=== PATIENT | female | born 1975 | race Caucasian/White ===

== ENCOUNTER 2020-12-02 18:16 | Emergency (ER) | payer SELFPAY ==
[~2020-12-02] VITALS: Ht 170.2 cm; Wt 115.7 kg
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
[2020-12-02] MEDS ORDERED: ACETAMINOPHEN 325 MG TABLET PO ONE (19:30)
[2020-12-02] MEDS ORDERED: ACETAMINOPHEN ES 500 MG TABLET ONE (19:56)
[2020-12-02] MEDS ORDERED: IBUP-1955 PO (20:08)
[2020-12-02] MEDS ORDERED: CYCL5TAB PO (20:08)
--- NOTE | 2020-12-02 20:16 | NUR ---
Patient discharged to home in stable condition. Written and verbal after care instructions given. Patient verbalizes understanding of instruction. ambulatory with a steady gait noted. pt aaox4 no acute distress noted resp even and unlabored.
[2020-12-02 20:17] VITALS: BP 146/76
== END 2020-12-02 20:18 | disposition home or self-care (01) ==
LOC: ER 18:25
DX: M54.5 Low back pain (principal); R20.0 Anesthesia of skin; R51.9 Headache, unspecified; J45.909 Unspecified asthma, uncomplicated; Z98.890 Other specified postprocedural states; Z79.899 Other long term (current) drug therapy; V49.49XA Driver injured in collision with other motor vehicles in traffic accident, initial encounter; Y93.89 Activity, other specified; Y92.413 State road as the place of occurrence of the external cause; Y99.8 Other external cause status
CPT/HCPCS: 72100-TC

== ENCOUNTER 2025-04-05 13:42 | Emergency (ER) | payer OTHER ==
[~2025-04-05] VITALS: Ht 170.2 cm; Wt 99.3 kg
[~2025-04-05 13:42] MED LIST: CYCL5TAB PO; IBUP-1955 PO
[2025-04-05 13:56] VITALS: TEMP 97.3
[2025-04-05] MEDS ORDERED: ONDANSETRON HCL/PF 4 MG/2 ML VIAL ONE (14:20)
[2025-04-05] MEDS: IV NS 0.9% 1,000 ML BAG IV ONE (14:21)
[2025-04-05] MEDS: ONDANSETRON HCL/PF 4 MG/2 ML VIAL IVP ONE (14:28)
[2025-04-05 14:44] LABS: CALCIUM, SERUM 8.7 mg/dL (8.5-10.1); CARBON DIOXIDE 23 mmol/L (21-32); CHLORIDE 103 mmol/L (98-107); GLUCOSE 126 mg/dL (74-106); POTASSIUM 4.2 mmol/L (3.5-5.1); SODIUM SERUM 136 mmol/L (136-145); UREA NITROGEN, BLOOD 16 mg/dL (7-18)
[2025-04-05 14:50] LABS: ALKALINE PHOSPHATASE 89 U/L (46-116); ASPARTATE AMINOTRANSFERASE 11 U/L (15-37); BILIRUBIN,TOTAL 0.3 mg/dL (0.2-1.0); TOTAL PROTEIN, SERUM 7.9 g/dL (6.4-8.2)
[2025-04-05 14:53] LABS: THYROID STIMULATING HORMONE 0.06 uIU/mL (0.358-3.74)
[2025-04-05 14:56] LABS: MAGNESIUM 2.3 mg/dL (1.8-2.4); PHOSPHORUS 2.5 mg/dL (2.5-4.9)
[2025-04-05 15:04] LABS: ALANINE AMINOTRANSFERASE 15 U/L (12-78); BILIRUBIN,DIRECT 0.1 mg/dL (0.0-0.2)
[2025-04-05] MEDS ORDERED: IOHEXOL-300 100 ML VIAL IV ONE (15:23)
[2025-04-05] MEDS ORDERED: IV NS 0.9% 250 ML IV ONE (15:24)
[2025-04-05 16:10] LABS: BASOPHILS # (AUTO) 0.1 K/uL (0.0-0.2); BASOPHILS % (AUTO) 0.6 % (0.0-2.0); EOSINOPHILS # (AUTO) 0.1 K/uL (0.0-0.7); EOSINOPHILS % (AUTO) 0.6 % (0.0-6.0); HEMATOCRIT 36 % (33-45); HEMOGLOBIN 11.6 g/dL (11.5-14.8); LYMPHOCYTES # (AUTO) 1.4 K/uL (0.8-4.8); LYMPHOCYTES % (AUTO) 13.8 % (20.0-44.0); MEAN CORPUSCULAR HEMOGLOBIN 27 PG (26.0-33.0); MEAN CORPUSCULAR HGB CONC 33 g/dl (31.0-36.0); MEAN CORPUSCULAR VOLUME 83 fL (82-100); MONOCYTES # (AUTO) 0.4 K/uL (0.1-1.30); MONOCYTES % (AUTO) 3.8 % (2.0-12.0); NEUTROPHILS # (AUTO) 8.2 K/uL (1.8-8.9); NEUTROPHILS % (AUTO) 81.2 % (43.0-81.0); PLATELET COUNT (AUTO) 321 K/uL (150-450); RED CELL DISTRIBUTION WIDTH 14.6 % (11.5-15.0); WHITE BLOOD COUNT (AUTO) 10.1 K/uL (4.3-11.0)
[2025-04-05] MEDS ORDERED: ACETAMINOPHEN ES 500 MG TABLET ONE (16:25)
[2025-04-05] MEDS: ACETAMINOPHEN ES 500 MG TABLET PO ONE (16:29)
[2025-04-05 16:39] LABS: PREGNANCY TEST URINE QUAL NEGATIVE (NEGATIVE)
[2025-04-05] MEDS ORDERED: ACET-2030 PO (18:30)
[2025-04-05] MEDS ORDERED: IBUP-1490 PO (18:30)
[2025-04-05 19:19] VITALS: BP 132/81
[2025-04-05 19:33] VITALS: O2SAT 99
== END 2025-04-05 19:33 | disposition home or self-care (01) ==
LOC: ER 13:45
DX: R55 Syncope and collapse (principal); R51.9 Headache, unspecified; R53.1 Weakness; R11.0 Nausea; E03.9 Hypothyroidism, unspecified; J45.909 Unspecified asthma, uncomplicated; Z96.641 Presence of right artificial hip joint; Z86.69 Personal history of other diseases of the nervous system and sense organs; Z87.39 Personal history of other diseases of the musculoskeletal system and connective tissue; Z88.8 Allergy status to other drugs, medicaments and biological substances; Z60.2 Problems related to living alone
CPT/HCPCS: 99285; 96374; 70470; 96361; 71045; 93005; 85025; 80048; 80076; 83735; 84100; 84703; 36415; 84439; 84443; 84484 ×2; 82962; J2405; J7030; J7050; Q9967